=== PATIENT | female | born 1985 | race African-American/Black ===

== ENCOUNTER 2017-10-28 13:01 | Emergency (ER) | payer MEDICAID, OTHER ==
--- NOTE | 2017-10-28 14:19 | ER Document Report ---
ED Medical Screen (RME) - General Chief Complaint: Leg Pain Stated Complaint: LEG PAIN Time Seen by Provider: 10/28/17 14:16 Notes: Patient presents to urgent care with tachycardia shortness of breath and chest pain. She states she has also had bilateral calf pain for 1 month. Patient was referred here for further evaluation. She denies any type of hormone or control use. No recent surgeries or travel. No previous history of DVTs or PEs. TRAVEL OUTSIDE OF THE [place] IN LAST 30 DAYS: No - Related Data Allergies/Adverse Reactions: No Known Allergies Allergy (Unverified 10/28/17 14:12) Home Medications: Current Home Medications Magnesium [Magnacaps] 100 mg PO DAILY 10/28/17 [History] Past Medical History - Social History Chew tobacco use (# tins/day): No Frequency of alcohol use: Social Drug Abuse: None Renal/ Medical History: Denies: Hx Peritoneal Dialysis Physical Exam - Vital signs Vitals: Temp Pulse Resp BP Pulse Ox 98.1 F 109 H 18 120/85 97 10/28/17 13:08 10/28/17 13:08 10/28/17 13:08 10/28/17 13:08 10/28/17 13:08 Course - Vital Signs Vital signs: Temp Pulse Resp BP Pulse Ox 98.1 F 109 H 18 120/85 97 10/28/17 13:08 10/28/17 13:08 10/28/17 13:08 10/28/17 13:08 10/28/17 13:08
--- NOTE | 2017-10-28 15:04 | RADIOLOGY REPORT (SQ) ---
EXAM DESCRIPTION: CHEST PA/LAT COMPLETED DATE/TIME: 10/28/2017 2:44 pm REASON FOR STUDY: cp COMPARISON: None. EXAM PARAMETERS: NUMBER OF VIEWS: two views TECHNIQUE: Digital Frontal and Lateral radiographic views of the chest acquired. RADIATION DOSE: NA LIMITATIONS: none FINDINGS: LUNGS AND PLEURA: There is very faint opacification in the right lower lung field. MEDIASTINUM AND HILAR STRUCTURES: No masses or contour abnormalities. HEART AND VASCULAR STRUCTURES: Heart normal size. No evidence for failure. BONES: No acute findings. HARDWARE: None in the chest. OTHER: No other significant finding. IMPRESSION: Cannot exclude very limited right middle lobe infiltrate. This is not appreciated on th e lateral view, however. TECHNICAL DOCUMENTATION: JOB ID: [id number] [employer]- All Rights Reserved
[2017-10-28 15:58] LABS: APPEARANCE,URINE CLEAR; BILIRUBIN,URINE NEGATIVE (NEGATIVE); GLUCOSE, URINE >=500 mg/dL (NEGATIVE); KETONES,URINE 80 mg/dL (NEGATIVE); LEUKOCYTE ESTERASE,URINE TRACE (NEGATIVE); NITRITE,URINE NEGATIVE (NEGATIVE); PROTEIN,URINE NEGATIVE (NEGATIVE); URINE SPECIFIC GRAVITY 1.032; UROBILINOGEN,URINE NEGATIVE mg/dL (<2.0)
[2017-10-28 16:00] LABS: ABSOLUTE LYMPHOCYTES (AUTO) 2.6 10^3/uL (0.5-4.7); ABSOLUTE MONOCYTES (AUTO) 0.3 10^3/uL (0.1-1.4); ABSOLUTE NEUT (AUTO) 4.1 10^3/uL (1.7-8.2); BASOPHILS % (AUTO) 0.3 % (0-2); EOSINOPHILS % (AUTO) 0.4 % (0-6); HEMATOCRIT 42.6 % (36.0-47.0); HEMOGLOBIN 14.7 g/dL (12.0-15.5); HGB HCT DIFFERENCE 1.5; LYMPHOCYTES % (AUTO) 36.7 % (13-45); MEAN CORPUSCULAR HEMOGLOBIN 32.2 pg (27.0-33.4); MEAN CORPUSCULAR HGB CONC 34.5 g/dL (32.0-36.0); MEAN CORPUSCULAR VOLUME 93 fl (80-97); MONOCYTES % (AUTO) 4.8 % (3-13); RED BLOOD COUNT 4.56 10^6/uL (3.72-5.28); RED CELL DISTRIBUTION WIDTH 12.2 % (11.5-14.0); SEGMENTED NEUTROPHILS % (AUTO) 57.8 % (42-78)
[2017-10-28 16:21] LABS: ALANINE AMINOTRANSFERASE 26 U/L (9-52); ALBUMIN 4.2 g/dL (3.5-5.0); ALKALINE PHOSPHATASE 108 U/L (38-126); ASPARTATE AMINO TRANSFERASE 12 U/L (14-36); BILIRUBIN,DIRECT 0.3 mg/dL (0.0-0.4); BILIRUBIN,TOTAL 0.4 mg/dL (0.2-1.3); BLOOD UREA NITROGEN 9 mg/dL (7-20); CALCIUM 9.5 mg/dL (8.4-10.2); CREATINE KINASE 23 U/L (30-135); CREATININE RESULT 0.62 mg/dL (0.52-1.25); TOTAL PROTEIN 6.6 g/dL (6.3-8.2)
[2017-10-28 16:45] LABS: ANION GAP 19 (5-19); CARBON DIOXIDE 22 mmol/L (22-30); CHLORIDE 94 mmol/L (98-107); POTASSIUM 4.8 mmol/L (3.6-5.0); SODIUM 134.5 mmol/L (137-145)
[2017-10-28 16:46] LABS: GLUCOSE 605 mg/dL (75-110)
[2017-10-28] MEDS ORDERED: INSULIN REG, HUMAN 100 UNIT/ML 3 ML VIAL (PYX) SUBCUT ONE (18:55)
[2017-10-28] MEDS: NORMAL SALINE 1000 ML 1,000 ML IV PRN ×2 (19:01→19:02)
--- NOTE | 2017-10-28 19:03 | ER Document Report ---
ED General - General Chief Complaint: Leg Pain Stated Complaint: LEG PAIN Time Seen by Provider: 10/28/17 14:16 Notes: Patient is here to be evaluated for chest pain which she had in her upper center chest this morning. She has never had this before and it is now almost gone. She recalls no unusual activity or injuring her chest. 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 She is also describing pain in both of her calves of her legs that has been present for well over a month. She has been seen at the [facility] for the latter and was put on Robaxin and Motrin 600 mg as she no longer has these medicines, but says they did not help very much and had to take them very regularly to help at all. She denies any difficulty breathing or shortness of breath. She has a history of diabetes and has been urinating frequently and heavily. She has not been on any medications for her blood sugar for several years. She says that she was on insulin during her latest , several years ago. Denies any fever. Denies any history of heart disease or high blood pressure. Non-smoker. TRAVEL OUTSIDE OF THE [place] IN LAST 30 DAYS: No - Related Data Allergies/Adverse Reactions: No Known Allergies Allergy (Unverified 10/28/17 14:12) Home Medications: Current Home Medications Magnesium [Magnacaps] 100 mg PO DAILY 10/28/17 [History] Past Medical History - Social History Smoking Status: Never Smoker Chew tobacco use (# tins/day): No Frequency of alcohol use: Social Drug Abuse: None Family History: Reviewed & Not Pertinent Patient has suicidal ideation: No Patient has homicidal ideation: No - Past Medical History Cardiac Medical History: Denies: Hx Coronary Artery Disease, Hx Heart Attack Endocrine Medical History: Reports: Hx Diabetes Mellitus Type 2 Past Surgical History: Reports: Hx Section - x2 Review of Systems - Review of Systems Notes: REVIEW OF SYSTEMS: CONSTITUTIONAL : Denies fever. EENT: Denies eye, ear, nose or mouth or throat pain or other symptoms. CARDIOVASCULAR: See HPI. RESPIRATORY: Denies cough, chest congestion, or shortness of breath. GASTROINTESTINAL: Denies abdominal pain or nausea, vomiting, or diarrhea. GENITOURINARY: Denies difficulty or painful urinating, urinary frequency, blood in urine. MUSCULOSKELETAL: Denies back or neck pain. Denies joint pain or swelling. See HPI. Pain in both calves, posterior aspect. SKIN: Denies rash or skin lesions. NEUROLOGICAL: Denies LOC or altered mental status. Denies headache. Denies sensory loss or motor deficits. ALL OTHER SYSTEMS REVIEWED AND NEGATIVE. Physical Exam - Vital signs Vitals: Temp Pulse Resp BP Pulse Ox 98.1 F 109 H 18 120/85 97 10/28/17 13:08 10/28/17 13:08 10/28/17 13:08 10/28/17 13:08 10/28/17 13:08 Interpretation: Tachycardic - Minimal. No: Hypoxic - Notes Notes: PHYSICAL EXAMINATION: GENERAL: Well-appearing, in no acute distress. Afebrile. Heart rate 109 in triage. HEAD: Atraumatic, normocephalic. EYES: Pupils equal round and reactive to light, extraocular movements intact. ENT: oropharynx clear without exudates. Moist mucous membranes. NECK: Normal range of motion, supple. LUNGS: Breath sounds clear and equal bilaterally. HEART: Regular rate and rhythm without murmurs. No chest wall tenderness to press. ABDOMEN: Soft, nontender. No guarding or rebound. BACK: No tenderness throughout entire back. EXTREMITIES: Normal range of motion without pain. No pain or swelling of either lower leg. Negative Homans bilaterally. NEUROLOGICAL: Normal speech, normal gait. Normal sensory, motor, and reflex exams. Awake, alert, and oriented x3. Cranial nerves normal. PSYCH: Normal mood, normal affect. SKIN: Warm, dry, no rashes. Course - Vital Signs Vital signs: Temp Pulse Resp BP Pulse Ox 98.1 F 109 H 18 120/85 97 10/28/17 13:08 10/28/17 13:08 10/28/17 13:08 10/28/17 13:08 10/28/17 13:08 - Laboratory Result Diagrams: 10/28/17 15:13 10/28/17 15:13 Laboratory results interpreted by me: 10/28/17 10/28/17 10/28/17 15:13 15:13 18:54 Sodium 134.5 L Chloride 94 L Glucose 605 H* POC Glucose 420 H* AST 12 L Creatine Kinase 23 L Urine Glucose (UA) >=500 H Urine Ketones 80 H Ur Leukocyte Esterase TRACE H 10/28/17 19:05 Blood sugar of 605 noted. - Diagnostic Test Radiology reviewed: Image reviewed, Reports reviewed - Chest x-ray was read as possible right middle lobe infiltrate. I did a CTA for that reason and now also to rule out pulmonary embolus, even though it is low risk and her d-dimer is negative. The CTA is normal. Discharge - Discharge Clinical Impression: Non-cardiac chest pain, Lower extremity pain, bilateral, Hyperglycemia, Tachycardia Condition: Stable Disposition: HOME, SELF-CARE Additional Instructions: CHEST PAIN OF UNCLEAR CAUSE: The exact cause of your chest pain isn't clear. Fortunately, there is no evidence of a dangerous medical condition. Further testing may be required to find the source of the pain. Most often, we find that this pain is coming from the chest wall -- the muscles or rib joints in the chest. But chest pain can come from the lung and lung lining, the esophagus, the heart valves or heart lining, and even the stomach or gallbladder. Rest. Eat lightly until the pain is gone. We may prescribe medicine for pain and inflammation. You should call the physician immediately if the pain radiates to the shoulder, jaw or arms; if you start to run a fever or develop a cough; or if you develop shortness of breath, or other new or alarming symptoms. NORMAL EXAM AND WORKUP: At this time, your examination and workup show no significant abnormality. No significant abnormal physical findings were noted. All laboratory, EKG, and imaging (x-ray, CT scans, ultrasound) studies that were ordered show no significant abnormality. Although your examination and all studies that were ordered showed no significant abnormal finding, there are no examinations and no studies that are 100% accurate. There is always the possibility that some abnormality could exist and not be detected with physical examination or within the limits and capabilities of laboratory and other studies. You should return or follow up as you were instructed on your visit today for further evaluation if your symptoms do not resolve. CHEST WALL PAIN: Your chest pain may be coming from the chest wall. This is often caused by straining the muscles or joints in the chest during physical activity, direct trauma, coughing, or vigorous vomiting. Persons with arthritis are especially prone to this type of pain, due to inflammation of the cartilage joints near the breast bone. Occasionally, no cause can be found. Rest from strenuous physical activity. This kind of chest pain is usually made worse by movement of the chest. Depending on the symptoms, we may prescribe medicine for pain, muscle relaxation, and antiinflammatory effects. If the pain is new, and seems to be due to muscle strain, cold packs can help. Otherwise, apply gentle warmth to the painful area for 15 minutes every hour or two. You should call contact the doctor immediately if things change. Further evaluation is needed if you develop a fever or cough, if the nature of the pain changes, or if you become short of breath. Leg Pain, Nonspecific We did not find an obvious cause for your leg pain. There's no sign of blood clot, infection, or other serious disease. Possible causes of vague leg pain include muscle or joint inflammation, disc disease in the lower back, pressure on the nerves in the back, or reduced blood flow through the arteries of the leg. Rest the leg. Pain can be eased with an antiinflammatory pain medicine such as ibuprofen. If the pain involves a small area, a heating pad might help. Call the doctor or return if the leg becomes swollen, weak, discolored, or increasingly painful, or if you develop any other significant change in your health. Muscle Strain You have strained a muscle -- torn the fibers within the muscle. This often occurs with strenuous exertion, or during an injury that suddenly stretches the muscle. The seriousness of a strain varies. Some strains heal within days, others cause problems for months. X-rays cannot show a muscle strain. X-rays are taken only if symptoms suggest that a fracture could be present. The usual treatment of a muscle strain is rest and ice packs. Sometimes, a sling, splint, or crutches may be necessary to rest the muscle. The muscle can be used again once pain subsides. Severe strains require a special exercise and stretching program to prevent permanent stiffness and disability. Your doctor will advise you if this will be necessary. Call the doctor immediately if pain or swelling becomes severe, or if numbness or discoloration develop. Ibuprofen Ibuprofen is an excellent, safe drug for pain control. In addition, it has potent antiinflammatory effects which are beneficial, especially in the treatment of injuries, arthritis, or tendonitis. It's best to take ibuprofen with food. Persons with ulcer disease or allergy to aspirin should notify their physician of this before taking ibuprofen. Take the medication exactly as prescribed. Don't take additional doses unless instructed to do so by your doctor. If you develop wheezing, shortness of breath, hives, faintness, stomach pain, vomiting, or dark black stools, return for re-evaluation at once. Muscle Relaxers Muscle relaxing medications are usually prescribed for acute muscle spasm or injury to the neck and back. They are often combined with antiinflammatory pain medication for increased relief. You may stop the muscle relaxer when the pain and stiffness have improved. Start the medication again if spasms recur. Muscle relaxers may cause drowsiness, especially with the first dose. Do not operate machinery or drive while under the effects of the medication. Most muscle relaxers last up to 24 hours. Do not combine the medication with alcohol. HYPERGLYCEMIA (HIGH BLOOD SUGAR): You have an abnormally high blood sugar. Not all high blood sugar requires long-term treatment. High blood sugar can be due to medications, , or the stress of illness. (These cases are "borderline diabetes.") If the doctor feels your high blood sugar might resolve with time, you may not require treatment now. It's very important that you follow through, to see if the blood sugar returns to normal levels. Uncontrolled high blood sugar leads to early heart disease, strokes, nerve damage, eye damage, and kidney damage. Call the physician if there is faintness, excess sleepiness, or very rapid breathing. DIABETES: You have an abnormally high blood sugar, suspicious for diabetes. Not all high blood sugar requires long-term treatment. High blood sugar can be due to medications, , or the stress of illness. (These cases are "borderline diabetes.") If the doctor feels your high blood sugar might get better with time, you may not require treatment now. It's very important that you follow through. Uncontrolled high blood sugar leads to early heart disease, strokes, nerve damage, eye damage, and kidney damage. All diabetics should follow a diet designed to control the blood sugar. Overweight diabetics should exercise regularly and lose weight. If this is not sufficient to control the blood sugar, pills or insulin shots are necessary. Younger people who develop diabetes almost always require insulin daily. Home testing of blood sugars or urine sugar is required. Diabetic teaching is available to help you figure insulin doses and monitor the blood sugar. Call the physician if there is faintness, excess sleepiness, or very rapid breathing. If hypoglycemia (LOW blood sugar) develops, symptoms are shakiness, weakness, sweating, and confusion. In this case, you should eat or drink something with sugar at once. ORAL HYPOGLYCEMIC MEDICATION: Oral hypoglycemics are medicines that lower blood sugar in diabetics. They are not effective for younger diabetics who require insulin. Some brands are tolbutamide, Orinase, glipizide, Glucotrol, glyburide, DiaBeta, Glynase, and Micronase. Some medications can increase or decrease the effect of Diabinese. Examples are Clofibrate (Atromid-S), phenylbutazone (Butazolidin), aspirin, sulfonamides, Coumadin, allopurinol (Zyloprim), probenecid (Benemid), acetazolamide (Diamox), beta blockers, steroids, estrogens, Indocin, INH, Levothyroxine, nicotinic acid, Diflucan, Dilantin, and thiazide diuretics. Be sure your doctor knows all the medicines you take, and talk to your doctor before making any changes in your medicines. If you develop symptoms of shakiness, sweats, and lightheadedness, your blood sugar may have gone too low. Eat or drink a small amount of sweet food. If symptoms don't go away, call your doctor. FOLLOW-UP CARE: If you have been referred to a physician for follow-up care, call the physician s office for an appointment as you were instructed or within the next two days. If you experience worsening or a significant change in your symptoms, notify the physician immediately or return to the Emergency Department at any time for re-evaluation. You need to follow-up soon with your primary care providers at the [facility] to adjust the medication dosage of Metformin. Also, perhaps they can think of other things that need to be checked or explored for the possible cause of your leg pain. At this time, your legs are normal to examine and all the tests that I can think of to order have shown nothing that would cause for you to have this pain. Prescriptions: Metformin HCl [Glucophage 500 mg Tablet] 500 mg PO BID #60 tablet Methocarbamol [Robaxin 750 mg Tablet] 750 mg PO QIDP PRN #60 tablet PRN Reason: Forms: Return to Work
--- NOTE | 2017-10-28 19:03 | RADIOLOGY REPORT (SQ) ---
EXAM DESCRIPTION: CTA CHEST COMPLETED DATE/TIME: 10/28/2017 6:48 pm REASON FOR STUDY: upper anter ch pain,tachy, BS 600, neg D-Dimer COMPARISON: Chest x-ray 10/28/2017 TECHNIQUE: CT scan of the chest performed using helical scanning technique with dynamic intravenous contrast injection. Images reviewed with lung, soft tissue and bone windows. Reconstructed coronal and sagittal MPR images reviewed. Additional 3 dimensional post-processing performed to develop Maximal Intensity Projection images (SC P). All images stored on PACS. All CT scanners at this facility use dose modulation, iterative reconstruction, and/or weight based d osing when appropriate to reduce radiation dose to as low as reasonably achievable (ALARA). [facility]: Dose Right [facility]: CareDose [facility]: Dose Right [facility]: Teradose 4D [facility]: [employer] CONTRAST TYPE AND DOSE: contrast/concentration: Isovue 370.00 mg/ml; Total Contrast Delivered: 62.0 ml; Total Saline Delivered: 40.1 ml Contrast bolus optimized for the pulmonary arteries. Not diagnostic for the aorta. RENAL FUNCTION: Creatinine 0.6 BUN 9 RADIATION DOSE: CT Rad equipment meets quality standard of care and radiation dose reduction techniq ues were employed. CTDIvol: 9.9 - 14.3 mGy. DLP: 437 mGy-cm. . LIMITATIONS: None. FINDINGS: LUNGS AND PLEURA: No infiltrates, effusions, or masses. No pneumothorax. AORTA AND GREAT VESSELS: No aneurysm. No dissection. HEART: No pericardial effusion. No significant coronary artery calcifications. PULMONARY ARTERIES: No emboli visualized in the main pulmonary arteries or the segmental branches. HILAR AND MEDIASTINAL STRUCTURES: No identified masses or abnormal nodes. HARDWARE: None in the chest. UPPER ABDOMEN: No significant findings. Limited exam. THYROID AND OTHER SOFT TISSUES: No masses. No adenopathy. BONES: No acute or significant finding. 3D MIPS: Confirm above findings. OTHER: No other significant finding. IMPRESSION: NORMAL CTA OF THE CHEST. NO PULMONARY EMBOLI. COMMENT: Quality ID # [id number]: Final reports with documentation of one or more dose reduction techniques (e.g., Automated exposure control, adjustment of the mA and/or kV according to patient size, use of iterative reconstruction technique) TECHNICAL DOCUMENTATION: JOB ID: [id number]- All Rights Reserved
[2017-10-28 19:39] VITALS: BP 119/65
--- NOTE | 2017-10-28 19:44 | EKG REPORT ---
SEVERITY:- OTHERWISE NORMAL ECG - SINUS TACHYCARDIA : Confirmed by: Chad Nogueira MD 28-Oct-2017 19:43:19
== END 2017-10-28 19:38 | disposition home or self-care (01) ==
LOC: ER 13:01
DX: R07.89 Other chest pain (principal); M79.662 Pain in left lower leg; M79.661 Pain in right lower leg; E11.65 Type 2 diabetes mellitus with hyperglycemia; R35.0 Frequency of micturition; R00.0 Tachycardia, unspecified
CPT/HCPCS: 93005; 99284; 96360; 96361; 36415; 82962; 82550; 85025; 81025; 80053; 81001; 85379; 71020; 71275; 93010; J1815; J7030

== ENCOUNTER 2017-12-01 17:42 | Emergency (ER) | payer OTHER ==
--- NOTE | 2017-12-01 18:07 | ER Document Report ---
ED Medical Screen (RME) - General Chief Complaint: High Blood Pressure Stated Complaint: HIGH BLOOD PRESSURE Time Seen by Provider: 12/01/17 18:00 Mode of Arrival: Ambulatory Information source: Patient Notes: This is a 31-year-old female with a history of insulin requiring diabetes that presents to the emergency room with tachycardia and hypertension. Patient states she has been experiencing right calf pain and has had ultrasounds of the right lower extremity both here and at [facility]. She states that she was diagnosed with restless leg syndrome and anemia and started on iron and vitamin C. Her current medicines are iron, vitamin C and Lantus insulin. Patient states she has lost considerable amount of weight (15 pounds) in the past few months. She was started on insulin for her diabetes in October. She has had ultrasounds of the lower extremities at [facility]. She had a CTA of the chest here last week. She denies any chest pain or shortness of breath at this time. She does admit that she has been under a lot of stress and she has been anxious about her diabetes and her health. TRAVEL OUTSIDE OF THE [place] IN LAST 30 DAYS: No - HPI Onset: Last week Onset/Duration: Gradual Quality of pain: Dull Severity: Moderate Pain Level: 2 Associated Symptoms: denies: Chest pain, Shortness of breath Exacerbated by: Denies Relieved by: Denies Similar symptoms previously: Yes Recently seen / treated by doctor: Yes - Related Data Smoking: Non-smoker Frequency of alcohol use: None Drug Abuse: None Allergies/Adverse Reactions: No Known Allergies Allergy (Verified 12/01/17 17:43) Past Medical History - General Information source: Patient - Social History Cigarette use (# per day): No Chew tobacco use (# tins/day): No Frequency of alcohol use: None Drug Abuse: None Lives with: Family Family history: None - Past Medical History Cardiac Medical History: Denies: Hx Coronary Artery Disease, Hx Heart Attack Pulmonary Medical History: Reports: None EENT Medical History: Reports: None Neurological Medical History: Reports: None Endocrine Medical History: Reports: Hx Diabetes Mellitus Type 2 Renal/ Medical History: Reports: None. Denies: Hx Peritoneal Dialysis Malignancy Medical History: Reports: None Psychiatric Medical History: Reports: Hx Anxiety Traumatic Medical History: Reports: None Infectious Medical History: Reports: None Past Surgical History: Reports: Hx Section - x2 Review of Systems - Review of Systems Constitutional: denies: Chills, Fever EENT: No symptoms reported Cardiovascular: No symptoms reported Respiratory: No symptoms reported Gastrointestinal: No symptoms reported Genitourinary: No symptoms reported Female Genitourinary: No symptoms reported Musculoskeletal: See HPI Skin: No symptoms reported Hematologic/Lymphatic: No symptoms reported Neurological/Psychological: No symptoms reported Physical Exam - Vital signs Vitals: Temp Pulse Resp BP Pulse Ox 99.0 F 122 H 12 156/107 H 98 12/01/17 17:46 12/01/17 17:46 12/01/17 17:46 12/01/17 17:46 12/01/17 17:46 Notes: Physical exam: GENERAL: 81-year-old female, alert and oriented 3, no acute distress. HEAD: Atraumatic, normocephalic. EYES: Pupils equal round and reactive to light, extraocular movements intact, sclera anicteric, conjunctiva are normal. ENT: TMs normal, nares patent, oropharynx clear without exudates. Moist mucous membranes. NECK: Normal range of motion, supple without obvious mass or JVD. LUNGS: Breath sounds clear to auscultation bilaterally and equal. No wheezes rales or rhonchi. HEART: Regular rate and rhythm without murmurs, rubs or gallops. ABDOMEN: Soft, normoactive bowel sounds. No tenderness to palpation. No guarding, no rebound. No masses appreciated. EXTREMITIES: Normal range of motion, no pitting or edema. No clubbing or cyanosis. NEUROLOGICAL: Cranial nerves II through XII grossly intact. Normal speech, moving all extremities. PSYCH: Normal mood, normal affect. SKIN: Warm, Dry, normal turgor, no rashes or lesions noted. Course - Re-evaluation Re-evalutation: 12/01/17 19:41 I discussed the results with the patient. Thyroid function tests were normal. Her EKG looked good. Her kidney function and electrolytes were good. Her sugar was elevated which is not uncommon for her. I think her blood pressure is because she has been very anxious. I did offer her a blood pressure medicine but she wanted to hold off because it was good in the primary care doctor's office on today. The plan will be to follow-up with Dr. cagle (her primary care physician) for repeat blood pressure check. I also recommended she seek referral to a tax associate for better control of her diabetes. - Vital Signs Vital signs: Temp Pulse Resp BP Pulse Ox 99.0 F 122 H 12 156/107 H 98 12/01/17 17:46 12/01/17 17:46 12/01/17 17:46 12/01/17 17:46 12/01/17 17:46 - Laboratory Result Diagrams: 12/01/17 18:10 12/01/17 18:10 Laboratory results interpreted by me: 12/01/17 18:10 Sodium 133.8 L Glucose 444 H* - EKG Interpretation by Me Rate: Normal Rhythm: NSR - KG shows normal sinus rhythm with no acute ST-T wave changes Doctor's Discharge - Discharge Clinical Impression: Elevated blood pressure, Extremity pain, Hyperglycemia Condition: Stable Disposition: HOME, SELF-CARE Additional Instructions: As we discussed, your kidneys and electrolytes tests were normal. Your sugar was elevated. I do recommend that you get follow-up with an tax associate for better control of the diabetes. As far as the blood pressure, it is possible that it could be a combination of the pain as well as the anxiety regarding everything that is been going on. You may require blood pressure medicine in the future, I would follow-up with your primary care doctor for repeat blood pressure check. Your blood pressure today was 156/107. Thank you for choosing [facility] for your care. The examination and treatment you have received in the Emergency Department today has been rendered on an emergency basis only and is not intended to be a substitute for complete medical care. You should contact your doctor as it is important that she/he examine you for any new or remaining problems. If given a copy of any lab tests or radiology reports, please bring them with you when you see your physician. If your problem worsens or new symptoms appear and you are unable to arrange prompt follow-up care, return to the Emergency Department. Specific signs to look out for: Worsening pain, shortness of breath or any concerns or getting worse. Any other instructions: Continue the insulin as planned. Awoke with the primary care doctor for the blood pressure. Take the gabapentin (this is a pain medicine that is helpful with neuropathy as well). Referral to a tax associate. Prescriptions: Gabapentin 300 mg PO BID #30 capsule
[2017-12-01 18:27] LABS: ABSOLUTE BASOPHILS # (AUTO) 0.1 10^3/uL (0.0-0.2); ABSOLUTE EOSINOPHILS # (AUTO) 0.1 10^3/uL (0.0-0.6); ABSOLUTE LYMPHOCYTES (AUTO) 2.5 10^3/uL (0.5-4.7); ABSOLUTE MONOCYTES (AUTO) 0.5 10^3/uL (0.1-1.4); BASOPHILS % (AUTO) 0.9 % (0-2); EOSINOPHILS % (AUTO) 1.4 % (0-6); HEMATOCRIT 41.5 % (36.0-47.0); MEAN CORPUSCULAR HEMOGLOBIN 31.7 pg (27.0-33.4); MEAN CORPUSCULAR HGB CONC 33.8 g/dL (32.0-36.0); MEAN CORPUSCULAR VOLUME 94 fl (80-97); MONOCYTES % (AUTO) 6.5 % (3-13); PLATELET COUNT 289 10^3/uL (150-450); RED BLOOD COUNT 4.43 10^6/uL (3.72-5.28); RED CELL DISTRIBUTION WIDTH 12.2 % (11.5-14.0); SEGMENTED NEUTROPHILS % (AUTO) 56.2 % (42-78); TOTAL CELLS COUNTED % (AUTO) 100 %; WHITE BLOOD COUNT 7.2 10^3/uL (4.0-10.5)
[2017-12-01 18:48] LABS: ALANINE AMINOTRANSFERASE 26 U/L (9-52); ALBUMIN 4.1 g/dL (3.5-5.0); ALKALINE PHOSPHATASE 76 U/L (38-126); ANION GAP 10 (5-19); ASPARTATE AMINO TRANSFERASE 16 U/L (14-36); BILIRUBIN,DIRECT 0.2 mg/dL (0.0-0.4); BILIRUBIN,TOTAL 0.5 mg/dL (0.2-1.3); BLOOD UREA NITROGEN 11 mg/dL (7-20); CALCIUM 10.2 mg/dL (8.4-10.2); CARBON DIOXIDE 25 mmol/L (22-30); CHLORIDE 99 mmol/L (98-107); CREATINE KINASE 31 U/L (30-135); POTASSIUM 4.4 mmol/L (3.6-5.0); SODIUM 133.8 mmol/L (137-145); TOTAL PROTEIN 6.7 g/dL (6.3-8.2)
[2017-12-01 19:06] LABS: FREE T4 (FREE THYROXINE) 1.25 ng/dL (0.78-2.19)
[2017-12-01 19:10] LABS: GLUCOSE 444 mg/dL (75-110)
[2017-12-01 19:19] LABS: THYROID STIMULATING HORMONE 1.26 uIU/mL (0.47-4.68)
--- NOTE | 2017-12-01 19:43 | EKG REPORT ---
SEVERITY:- ABNORMAL ECG - SINUS TACHYCARDIA MULTIPLE ATRIAL PREMATURE COMPLEXES : Confirmed by: Seth Kim 01-Dec-2017 19:43:17
[2017-12-01 19:45] VITALS: BP 137/102
== END 2017-12-01 19:43 | disposition home or self-care (01) ==
LOC: ER 17:42
DX: E11.65 Type 2 diabetes mellitus with hyperglycemia (principal); R03.0 Elevated blood-pressure reading, without diagnosis of hypertension; R00.0 Tachycardia, unspecified; M79.604 Pain in right leg; G25.81 Restless legs syndrome; D64.9 Anemia, unspecified; Z79.4 Long term (current) use of insulin
CPT/HCPCS: 36415; 80053; 82550; 84439; 84443; 84702; 85025; 93005; 93010; 99283

== ENCOUNTER 2017-12-08 02:15 | Emergency (ER) | payer OTHER ==
[2017-12-08] MEDS ORDERED: NORMAL SALINE 1000 ML 1,000 ML IV ONE (03:26)
--- NOTE | 2017-12-08 03:46 | ER Document Report ---
ED General - General Chief Complaint: Leg Pain Stated Complaint: LEG PAIN Time Seen by Provider: 12/08/17 03:04 Mode of Arrival: Ambulatory Information source: Patient Notes: Patient presents very anxious about her health. Patient states that since September of last year she has had bilateral calf pain. Patient has been seen in this emergency department as well as with her primary doctor's office and has been told she has muscle pain, has been told on subsequent visit that she may have restless leg syndrome and most recently that she has low iron. Patient additionally reports weight loss gradually since August of last year. Patient states that she weighed 127 pounds in August and today weighs 108. Patient reports a 7 pound weight loss over the past 3 days. Patient states that she is diabetic and sporadically take her metformin but has been placed on Lantus. Patient reports she was started on gabapentin 7 days ago. Patient denies any recent travel or immobilization. Patient does not feel like her primary doctor is getting anywhere with the evaluation of her symptoms. She does acknowledge a history depression although is not currently on any medications to treat this. Patient does state she has had a rapid heart rate for the past several months. TRAVEL OUTSIDE OF THE [place] IN LAST 30 DAYS: No - HPI Onset: Other - 3 months Onset/Duration: Persistent Quality of pain: Achy Pain Level: 5 Associated symptoms: Other - Leg pain. denies: Chest pain, Fever, Nausea, Vomiting, Shortness of breath Exacerbated by: Denies Relieved by: Denies Similar symptoms previously: Yes Recently seen / treated by doctor: Yes - Related Data Allergies/Adverse Reactions: No Known Allergies Allergy (Verified 12/08/17 02:30) Past Medical History - General Information source: Patient - Social History Smoking Status: Never Smoker Frequency of alcohol use: Occasional Drug Abuse: None Occupation: advisory software engineer Lives with: Family Family History: Reviewed & Not Pertinent - Past Medical History Cardiac Medical History: Denies: Hx Coronary Artery Disease, Hx Heart Attack Endocrine Medical History: Reports: Hx Diabetes Mellitus Type 2 Renal/ Medical History: Denies: Hx Peritoneal Dialysis Psychiatric Medical History: Reports: Hx Anxiety, Hx Depression Past Surgical History: Reports: Hx Section - x2 Review of Systems - Review of Systems Constitutional: No symptoms reported. denies: Fever, Recent illness EENT: No symptoms reported Cardiovascular: No symptoms reported. denies: Chest pain Respiratory: No symptoms reported. denies: Cough Gastrointestinal: No symptoms reported. denies: Nausea Genitourinary: No symptoms reported Female Genitourinary: No symptoms reported Musculoskeletal: Muscle pain - Bilateral calf pain Skin: No symptoms reported Hematologic/Lymphatic: No symptoms reported Neurological/Psychological: Depression, Anxiety Physical Exam - Vital signs Vitals: Temp Pulse Resp BP Pulse Ox 98.2 F 116 H 18 149/97 H 95 12/08/17 02:32 12/08/17 02:32 12/08/17 02:32 12/08/17 02:32 12/08/17 02:32 - General General appearance: Alert, Anxious In distress: None - HEENT Head: Normocephalic, Atraumatic Eyes: Normal Conjunctiva: Normal Nasal: Normal Mouth/Lips: Normal Mucous membranes: Normal Pharynx: Normal Neck: Normal, Supple. No: Lymphadenopathy - Respiratory Respiratory status: No respiratory distress Chest status: Nontender Breath sounds: Normal Chest palpation: Normal - Cardiovascular Rhythm: Tachycardia Heart sounds: S1 appreciated, S2 appreciated Murmur: No - Abdominal Inspection: Normal Distension: No distension Bowel sounds: Normal Tenderness: Nontender Organomegaly: No organomegaly - Back Back: Normal, Nontender. No: CVA tenderness, Vertebra tenderness - Extremities General upper extremity: Normal inspection, Normal strength General lower extremity: Normal inspection, Tender - Bilateral calf, Normal color, Normal ROM, Normal strength, Normal temperature. No: Edema Calf: Tender. No: Abrasion, Ecchymosis, Instability, Laceration, Unable to bear weight - Neurological Neuro grossly intact: Yes Cognition: Normal Verenice Coma Scale Eye Opening: Spontaneous Verenice Coma Scale Verbal: Oriented Mcguffey Coma Scale Motor: Obeys Commands Verenice Coma Scale Total: 15 - Psychological Associated symptoms: Anxious, Tearful - Skin Skin Temperature: Warm Skin Moisture: Dry Skin Color: Normal Course - Re-evaluation Re-evalutation: 12/08/17 06:25 Patient presents with tachycardia that she has had documented on all of her previous ER visits. Patient's tachycardia today is consistent with where she has run in the past. Patient states that she has been evaluated by her doctor as well as the [facility] in the ER here and has had a negative Doppler study checking for blood clots in the legs. Patient did have a negative CTA performed here in October to evaluate for possible PE given her tachycardia then. Patient without any chest pain dyspnea nausea vomiting. Discussed importance of follow-up with her primary doctor to seek cardiology follow-up for tachycardia as well as possible endocrinology follow-up for further evaluation of weight loss and diabetic management. - Vital Signs Vital signs: Temp Pulse Resp BP Pulse Ox 98.2 F 121 H 18 127/89 H 99 12/08/17 02:32 12/08/17 06:01 12/08/17 06:01 12/08/17 06:01 12/08/17 06:01 - Laboratory Result Diagrams: 12/08/17 04:15 12/08/17 04:15 Laboratory results interpreted by me: 12/08/17 12/08/17 04:15 04:35 Sodium 136.0 L Glucose 281 H Calcium 10.3 H AST 12 L Creatine Kinase 25 L Urine Glucose (UA) >=500 H Labs- Entire Visit 12/08/17 12/08/17 12/08/17 04:15 04:15 04:15 WBC 9.0 RBC 4.40 Hgb 14.3 Hct 40.3 MCV 92 MCH 32.4 MCHC 35.4 RDW 12.0 Plt Count 288 Seg Neutrophils % 57.1 Lymphocytes % 36.4 Monocytes % 5.3 Eosinophils % 0.9 Basophils % 0.3 Absolute Neutrophils 5.2 Absolute Lymphocytes 3.3 Absolute Monocytes 0.5 Absolute Eosinophils 0.1 Absolute Basophils 0.0 Sodium 136.0 L Potassium 4.3 Chloride 101 Carbon Dioxide 27 Anion Gap 8 BUN 10 Creatinine 0.55 Est GFR ( Amer) > 60 Est GFR (Non-Af Amer) > 60 Glucose 281 H Calcium 10.3 H Magnesium 1.6 Total Bilirubin 0.5 Direct Bilirubin 0.2 Neonat Total Bilirubin Not Reportable Neonat Direct Bilirubin Not Reportable Neonat Indirect Bili Not Reportable AST 12 L ALT 21 Alkaline Phosphatase 68 Creatine Kinase 25 L Total Protein 6.9 Albumin 4.3 TSH Serum HCG, Qual NEGATIVE Urine Color Urine Appearance Urine pH Ur Specific [place] Urine Protein Urine Glucose (UA) Urine Ketones Urine Blood Urine Nitrite Urine Bilirubin Urine Urobilinogen Ur Leukocyte Esterase Urine WBC (Auto) Urine RBC (Auto) Squamous Epi Cells Auto Urine Mucus (Auto) Urine Ascorbic Acid 12/08/17 12/08/17 04:15 04:35 WBC RBC Hgb Hct MCV MCH MCHC RDW Plt Count Seg Neutrophils % Lymphocytes % Monocytes % Eosinophils % Basophils % Absolute Neutrophils Absolute Lymphocytes Absolute Monocytes Absolute Eosinophils Absolute Basophils Sodium Potassium Chloride Carbon Dioxide Anion Gap BUN Creatinine Est GFR ( Amer) Est GFR (Non-Af Amer) Glucose Calcium Magnesium Total Bilirubin Direct Bilirubin Neonat Total Bilirubin Neonat Direct Bilirubin Neonat Indirect Bili AST ALT Alkaline Phosphatase Creatine Kinase Total Protein Albumin TSH 1.30 Serum HCG, Qual Urine Color STRAW Urine Appearance CLEAR Urine pH 6.0 Ur Specific [place] 1.017 Urine Protein NEGATIVE Urine Glucose (UA) >=500 H Urine Ketones NEGATIVE Urine Blood NEGATIVE Urine Nitrite NEGATIVE Urine Bilirubin NEGATIVE Urine Urobilinogen NEGATIVE Ur Leukocyte Esterase NEGATIVE Urine WBC (Auto) 1 Urine RBC (Auto) 0 Squamous Epi Cells Auto 3 Urine Mucus (Auto) RARE Urine Ascorbic Acid NEGATIVE Discharge - Discharge Clinical Impression: Tachycardia, Leg pain, bilateral, Hx of diabetes mellitus Condition: Stable Disposition: HOME, SELF-CARE Instructions: Diabetes ([facility]), Leg Pain Nonspecific ([facility]), Palpitations ( Irregular or Rapid Heartrate) ([facility]) Additional Instructions: Return immediately for any new or worsening symptoms Followup with your primary care provider, call tomorrow to make a followup appointment Follow-up with a commissioner of relocation services for further evaluation of rapid heart rate Follow-up with senior it project manager for further evaluation of weight loss as well as diabetes management Prescriptions: Naproxen [Naprosyn 250 Nmg Tablet] 1 tab PO BID #14 tablet Referrals: DEEPTHI BUSTILLO MD [ACTIVE STAFF] - Follow up in 3-5 days [facility] [Provider Group] - Follow up as needed
[2017-12-08 04:38] LABS: ABSOLUTE EOSINOPHILS # (AUTO) 0.1 10^3/uL (0.0-0.6); ABSOLUTE LYMPHOCYTES (AUTO) 3.3 10^3/uL (0.5-4.7); ABSOLUTE MONOCYTES (AUTO) 0.5 10^3/uL (0.1-1.4); ABSOLUTE NEUT (AUTO) 5.2 10^3/uL (1.7-8.2); BASOPHILS % (AUTO) 0.3 % (0-2); EOSINOPHILS % (AUTO) 0.9 % (0-6); HEMATOCRIT 40.3 % (36.0-47.0); HEMOGLOBIN 14.3 g/dL (12.0-15.5); LYMPHOCYTES % (AUTO) 36.4 % (13-45); MEAN CORPUSCULAR HEMOGLOBIN 32.4 pg (27.0-33.4); MEAN CORPUSCULAR HGB CONC 35.4 g/dL (32.0-36.0); MEAN CORPUSCULAR VOLUME 92 fl (80-97); MONOCYTES % (AUTO) 5.3 % (3-13); PLATELET COUNT 288 10^3/uL (150-450); SEGMENTED NEUTROPHILS % (AUTO) 57.1 % (42-78); TOTAL CELLS COUNTED % (AUTO) 100 %
[2017-12-08 04:53] LABS: ALANINE AMINOTRANSFERASE 21 U/L (9-52); ALBUMIN 4.3 g/dL (3.5-5.0); ALKALINE PHOSPHATASE 68 U/L (38-126); ANION GAP 8 (5-19); ASPARTATE AMINO TRANSFERASE 12 U/L (14-36); BILIRUBIN,DIRECT 0.2 mg/dL (0.0-0.4); BILIRUBIN,TOTAL 0.5 mg/dL (0.2-1.3); BLOOD UREA NITROGEN 10 mg/dL (7-20); CALCIUM 10.3 mg/dL (8.4-10.2); CARBON DIOXIDE 27 mmol/L (22-30); CHLORIDE 101 mmol/L (98-107); CREATINE KINASE 25 U/L (30-135); GLUCOSE 281 mg/dL (75-110); MAGNESIUM 1.6 mg/dL (1.6-2.3); POTASSIUM 4.3 mmol/L (3.6-5.0); TOTAL PROTEIN 6.9 g/dL (6.3-8.2)
[2017-12-08 06:04] VITALS: BP 127/89
[2017-12-08 06:06] LABS: APPEARANCE,URINE CLEAR; BILIRUBIN,URINE NEGATIVE (NEGATIVE); COLOR,URINE STRAW; GLUCOSE, URINE >=500 mg/dL (NEGATIVE); KETONES,URINE NEGATIVE (NEGATIVE); LEUKOCYTE ESTERASE,URINE NEGATIVE (NEGATIVE); NITRITE,URINE NEGATIVE (NEGATIVE); PROTEIN,URINE NEGATIVE (NEGATIVE); URINE SPECIFIC GRAVITY 1.017; UROBILINOGEN,URINE NEGATIVE mg/dL (<2.0)
--- NOTE | 2017-12-08 11:55 | EKG REPORT ---
SEVERITY:- OTHERWISE NORMAL ECG - SINUS TACHYCARDIA ATRIAL PREMATURE COMPLEX : Confirmed by: Janet Reynolds MD 08-Dec-2017 11:53:39
== END 2017-12-08 06:38 | disposition home or self-care (01) ==
LOC: ER 02:15
DX: M79.1 Myalgia (principal); E11.9 Type 2 diabetes mellitus without complications; Z79.4 Long term (current) use of insulin; F41.9 Anxiety disorder, unspecified; F32.9 Major depressive disorder, single episode, unspecified; R00.0 Tachycardia, unspecified; R63.4 Abnormal weight loss; Z68.1 Body mass index [BMI] 19.9 or less, adult
CPT/HCPCS: 93005; 99284; 96360; 36415; 82550; 83735; 84443; 84703; 85025; 80053; 81001; 93010; J7030

== ENCOUNTER 2017-12-20 13:04 | Emergency (ER) | payer OTHER ==
[2017-12-20 13:20] VITALS: BP 141/104
--- NOTE | 2017-12-20 22:07 | EKG REPORT ---
SEVERITY:- OTHERWISE NORMAL ECG - SINUS TACHYCARDIA : Confirmed by: Seth Kim 20-Dec-2017 22:07:12
== END 2017-12-20 13:22 | disposition left against medical advice (07) ==
LOC: ER 13:04
DX: Z53.21 Procedure and treatment not carried out due to patient leaving prior to being seen by health care provider (principal)
CPT/HCPCS: 93005; 93010

== ENCOUNTER 2018-05-01 22:21 | Emergency (ER) | payer OTHER ==
[2018-05-02] MEDS ORDERED: DIAZEPAM 5 MG TABLET PO ONE (00:02)
--- NOTE | 2018-05-02 00:17 | ER Document Report ---
ED General <LYDIA STANFORD - Last Filed: 05/02/18 02:48> - General Mode of Arrival: Ambulatory Information source: Patient TRAVEL OUTSIDE OF THE [place] IN LAST 30 DAYS: No <SHAHNAZ NATH - Last Filed: 05/02/18 03:48> - General Chief Complaint: Leg Pain Stated Complaint: BILATERIAL LEG PAIN Time Seen by Provider: 05/01/18 23:43 Notes: Patient is a 32 year old female presenting to the emergency department complaining of chronic bilateral leg pain and heart racing worsening yesterday. She states her current pain is primarily located to her bilateral calf. Patient states she was seen in an ED in [place] last week for similar symptoms and was given Valium which she states helped relieve her pain. She states she was also prescribed Robaxin and Motrin further stating Robaxin is not helping her with her pain. Her primary care doctor put her on Zanaflex which she states is also not helping. She states that she has not had any real workup pertaining to her heart racing further stating she has only had EKGs performed. She also mentions having her TSH levels checked which were found to be normal. Patient was recently diagnosed with achilles tendinitis a few months ago. Patient states that she is currently on 30 units of Lantus and her sugars have been running well lately. Patient's PCP is Dr. Walker. (SHAHNAZ NATH) - Related Data Allergies/Adverse Reactions: No Known Allergies Allergy (Verified 12/20/17 13:05) Past Medical History - General Information source: Patient - Social History Smoking Status: Never Smoker Frequency of alcohol use: Social Drug Abuse: None Family History: Reviewed & Not Pertinent Patient has suicidal ideation: No Patient has homicidal ideation: No Endocrine Medical History: Reports: Hx Diabetes Mellitus Type 2 Psychiatric Medical History: Reports: Hx Anxiety, Hx Depression Past Surgical History: Reports: Hx Section - x2 <SHAHNAZ NATH - Last Filed: 05/02/18 03:48> Review of Systems - Review of Systems Constitutional: No symptoms reported EENT: No symptoms reported Cardiovascular: See HPI, Heart racing Respiratory: No symptoms reported Gastrointestinal: No symptoms reported Genitourinary: No symptoms reported Musculoskeletal: See HPI Skin: No symptoms reported Hematologic/Lymphatic: No symptoms reported Neurological/Psychological: No symptoms reported -: Yes All other systems reviewed and negative <PORTILLOSHAHNAZ JESUS - Last Filed: 05/02/18 03:48> Physical Exam - General General appearance: Appears well, Alert In distress: None - HEENT Head: Normocephalic, Atraumatic Eyes: Normal Extraocular movements intact: Yes Pupils: PERRL Neck: Normal - Respiratory Respiratory status: No respiratory distress Chest status: Nontender Breath sounds: Normal Chest palpation: Normal - Cardiovascular Rhythm: Regular, Tachycardia Heart sounds: Normal auscultation Murmur: No Friction rub: No Gallop: None auscultated - Abdominal Inspection: Normal Distension: No distension Bowel sounds: Normal Tenderness: Nontender Organomegaly: No organomegaly - Back Back: Normal - Extremities General upper extremity: Normal ROM General lower extremity: Tender - Somewhat tender to the bilateral calfs and thighs. Bilateral achilles tendon very tender to palpation., Normal ROM - Neurological Neuro grossly intact: Yes Cognition: Normal Orientation: AAOx4 Arthur Coma Scale Eye Opening: Spontaneous Arthur Coma Scale Verbal: Oriented Verenice Coma Scale Motor: Obeys Commands Arthur Coma Scale Total: 15 Speech: Normal - Psychological Associated symptoms: Normal affect, Normal mood - Skin Skin Temperature: Warm Skin Moisture: Dry Skin Color: Normal <PORTILLOSHAHNAZ JESUS - Last Filed: 05/02/18 03:48> - Vital signs Vitals: Temp Pulse Resp BP Pulse Ox 99.2 F 124 H 18 144/102 H 99 05/01/18 22:35 05/01/18 22:35 05/01/18 22:35 05/01/18 22:35 05/01/18 22:35 Course - Laboratory Result Diagrams: 05/02/18 00:15 05/02/18 00:15 - EKG Interpretation by Pa EKG shows normal: Sinus rhythm, [place], Intervals, QRS Complexes, ST-T Waves Rate: Tachycardia - 114 When compared to previous EKG there are: No significant change <LYDIA STANFORD - Last Filed: 05/02/18 02:48> - Laboratory Result Diagrams: 05/02/18 00:15 05/02/18 00:15 <SHAHNAZ NATH - Last Filed: 05/02/18 03:48> - Re-evaluation Re-evalutation: 05/02/18 02:15 EKG shows sinus tachycardia 114, otherwise unremarkable. Chest x-ray is normal. CBC is unremarkable. ESR is 12. Chem-12 is normal. CK is 63. TSH, T3 and T4 are all normal. Urine is normal except for budding yeast and glucose in the urine. (LYDIA STANFORD) - Vital Signs Vital signs: Temp Pulse Resp BP Pulse Ox 98.1 F 124 H 18 152/97 H 100 05/02/18 02:21 05/01/18 22:35 05/01/18 22:35 05/02/18 02:21 05/02/18 02:21 - Laboratory Laboratory results interpreted by me: 05/02/18 05/02/18 05/02/18 00:15 00:15 00:15 Hct 35.5 L Lymphocytes % 45.3 H Glucose 185 H Hemoglobin A1c % 6.8 H Urine Glucose (UA) 05/02/18 01:05 Hct Lymphocytes % Glucose Hemoglobin A1c % Urine Glucose (UA) 150 H Discharge <LYDIA STANFORD - Last Filed: 05/02/18 02:48> <SHAHNAZ NATH - Last Filed: 05/02/18 03:48> - Discharge Clinical Impression: Leg pain, bilateral, Tachycardia, Yeast vaginitis Condition: Stable Disposition: HOME, SELF-CARE Additional Instructions: There is no clear explanation for your chronic leg pain at this time. You also seem to have a chronic sinus tachycardia without any clear explanation. Your workup today was essentially normal except for some yeast in your urine exam. You were given dose of Diflucan which should clear that up. Take the pain medication as dispensed a night if needed for your leg pain. Follow-up with Dr. Walker today to discuss management of your ongoing leg discomfort and rapid heart rate. Referrals: GINA WALKER MD [Primary Care Provider] - 05/02/18 Scribe Attestation: 05/02/18 02:15 I personally performed the services described in the documentation, reviewed and edited the documentation which was dictated to the scribe in my presence, and it accurately records my words and actions. (LYDIA STANFORD) Scribe Documentation - Scribe Written by Scribe:: Jared Menchaca, 05/02/2018 00:19 acting as scribe for :: Randee <SHAHNAZ NATH - Last Filed: 05/02/18 03:48>
[2018-05-02 00:28] LABS: ABSOLUTE EOSINOPHILS # (AUTO) 0.2 10^3/uL (0.0-0.6); ABSOLUTE MONOCYTES (AUTO) 0.4 10^3/uL (0.1-1.4); BASOPHILS % (AUTO) 0.6 % (0-2); EOSINOPHILS % (AUTO) 2.3 % (0-6); HEMATOCRIT 35.5 % (36.0-47.0); HEMOGLOBIN 12.2 g/dL (12.0-15.5); LYMPHOCYTES % (AUTO) 45.3 % (13-45); MEAN CORPUSCULAR HEMOGLOBIN 30.8 pg (27.0-33.4); MEAN CORPUSCULAR HGB CONC 34.3 g/dL (32.0-36.0); MEAN CORPUSCULAR VOLUME 90 fl (80-97); MONOCYTES % (AUTO) 5.7 % (3-13); PLATELET COUNT 328 10^3/uL (150-450); RED BLOOD COUNT 3.96 10^6/uL (3.72-5.28); RED CELL DISTRIBUTION WIDTH 12.7 % (11.5-14.0); SEGMENTED NEUTROPHILS % (AUTO) 46.1 % (42-78); TOTAL CELLS COUNTED % (AUTO) 100 %; WHITE BLOOD COUNT 6.6 10^3/uL (4.0-10.5)
[2018-05-02 00:53] LABS: ALANINE AMINOTRANSFERASE 23 U/L (9-52); ALBUMIN 4.1 g/dL (3.5-5.0); ALKALINE PHOSPHATASE 54 U/L (38-126); ANION GAP 11 (5-19); ASPARTATE AMINO TRANSFERASE 15 U/L (14-36); BILIRUBIN,DIRECT 0.3 mg/dL (0.0-0.4); BILIRUBIN,TOTAL 0.4 mg/dL (0.2-1.3); BLOOD UREA NITROGEN 13 mg/dL (7-20); CALCIUM 9.9 mg/dL (8.4-10.2); CARBON DIOXIDE 26 mmol/L (22-30); CHLORIDE 107 mmol/L (98-107); CREATINE KINASE 63 U/L (30-135); GLUCOSE 185 mg/dL (75-110); POTASSIUM 4.5 mmol/L (3.6-5.0); TOTAL PROTEIN 6.9 g/dL (6.3-8.2)
[2018-05-02 00:54] LABS: C-REACTIVE PROTEIN < 5.0 mg/L (<10.0)
[2018-05-02 01:06] LABS: ERYTHROCYTE SEDIMENTATION RATE 12 mm/hr (0-20)
[2018-05-02 01:07] LABS: FREE T3 4.45 pg/mL (2.77-5.27); FREE T4 (FREE THYROXINE) 1.2 ng/dL (0.78-2.19)
[2018-05-02 01:21] LABS: THYROID STIMULATING HORMONE 1.41 uIU/mL (0.47-4.68)
[2018-05-02 01:33] LABS: AMORPHOUS SEDIMENT,URINE TRACE /HPF; APPEARANCE,URINE SLIGHTLY-CLOUDY; BILIRUBIN,URINE NEGATIVE (NEGATIVE); COLOR,URINE YELLOW; GLUCOSE, URINE 150 mg/dL (NEGATIVE); KETONES,URINE NEGATIVE (NEGATIVE); LEUKOCYTE ESTERASE,URINE NEGATIVE (NEGATIVE); NITRITE,URINE NEGATIVE (NEGATIVE); PROTEIN,URINE NEGATIVE (NEGATIVE); URINE SPECIFIC GRAVITY 1.021; UROBILINOGEN,URINE NEGATIVE mg/dL (<2.0)
[2018-05-02] MEDS ORDERED: FLUCONAZOLE 100 MG TABLET PO ONE (01:46)
[2018-05-02] MEDS ORDERED: OXYCODONE-ACETAMINOPHEN 5-325 MG TABLET PO ONE (01:55)
--- NOTE | 2018-05-02 02:37 | RADIOLOGY REPORT (SQ) ---
EXAM DESCRIPTION: XR CHEST 2 VIEWS COMPLETED DATE/TME: 05/02/2018 01:48 CLINICAL HISTORY: 32 years Female, Chest pain, tachycardia COMPARISON: None. FINDINGS: Adequate lung volume, clear parenchyma, normal cardiac silhouette, and intact bony thorax. IMPRESSION: No acute cardiopulmonary findings.
[2018-05-02] MEDS ORDERED: HYDROCODONE/ACETAMINOPHEN 5-325 MG (6 TAB/ER DISP) PO PRN (02:45)
[2018-05-02 03:01] VITALS: BP 152/97
--- NOTE | 2018-05-02 08:17 | EKG REPORT ---
SEVERITY:- OTHERWISE NORMAL ECG - SINUS TACHYCARDIA : Confirmed by: Seth Kim 02-May-2018 08:17:18
== END 2018-05-02 03:08 | disposition home or self-care (01) ==
LOC: ER 22:21
DX: M79.604 Pain in right leg (principal); M79.605 Pain in left leg; G89.29 Other chronic pain; R00.0 Tachycardia, unspecified; B37.3 Candidiasis of vulva and vagina; Z79.899 Other long term (current) drug therapy; Z79.4 Long term (current) use of insulin; E11.9 Type 2 diabetes mellitus without complications
CPT/HCPCS: 36415; 71046; 80053; 81001; 82550; 83036; 84439; 84443; 84481; 84484; 84703; 85025; 85379; 85652; 86140; 93005; 93010; 99284

== ENCOUNTER 2018-05-07 22:29 | Emergency (ER) | payer OTHER | END 2018-05-07 23:06 | disposition left against medical advice (07) | LOC: ER 22:29 | DX: Z53.21 Procedure and treatment not carried out due to patient leaving prior to being seen by health care provider (principal); M79.606 Pain in leg, unspecified ==